=== PATIENT | female | born 1950 | race Caucasian/White ===

== ENCOUNTER → 2019-06-22 | Outpatient (CLI) | payer MEDICARE, OTHER ==
[~2019-06-22] MED LIST: ALLO100T PO; ALLO300T PO; ASPI-667 PO; CITA40TA5 PO; EMPA25TA PO; ESTR0.5T PO; EZET1TAB35 PO; GABA100C7 PO; GABA600T7 PO; LEVO25TA2 PO; METF500T12 PO; OMEP40CA6 PO; PRAV40TA2 PO; ROPI5TAB PO; TRAM200T17 PO
[2019-06-22 15:28] LABS: CALCIUM 9.3 mg/dL (8.4-10.5); CARBON DIOXIDE 30.5 mmol/L (20.0-32)
== END | disposition home or self-care (01) ==
LOC: LAB 14:57
PROVIDERS: ATTEND Internal Medicine
DX: E78.2 Mixed hyperlipidemia (principal)
CPT/HCPCS: 36415; 80053; 80061

== ENCOUNTER 2019-06-23 20:49 | Emergency (ER) | payer MEDICARE, OTHER ==
[2019-06-23] VITALS (9 sets, daily range): BP systolic 97–138; BP diastolic 51–71
[~2019-06-23] VITALS: Ht 160 cm; Wt 104.3 kg
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
[2019-06-23] MEDS ORDERED: TORADOL ONE (21:16)
[2019-06-23] MEDS ORDERED: NS 1000ML 1,000 ML ONE (21:16)
[2019-06-23] MEDS: TORADOL IV STA (21:22)
[2019-06-23] MEDS: NS 1000ML 1,000 ML IV STA (21:22)
--- NOTE | 2019-06-23 21:26 | ER.PDOC ---
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 Injuries/Pain Location: head, neck, back Context: Lost Balance Loss of Consciousness: No Loss of Consciousness Associated Symptoms: headache, neck pain Allergies: Coded Allergies: codeine (Unverified Allergy, Unknown, 05/24/14) oxytetracycline (Unverified Allergy, Unknown, 05/24/14) MEDS Reported Medications Empagliflozin (Jardiance) 25 Mg Tablet, 0.5 TAB PO DAILY24, TABLET 12/13/17 Pravastatin Sodium (PRAVASTATIN SODIUM) 40 Mg Tablet, 1 TAB PO HS, #90 TAB 1 Refill 12/13/17 Estradiol (ESTRADIOL) 0.5 Mg Tablet, 1 TAB PO DAILY, #90 TAB 3 Refills 12/13/17 Citalopram Hydrobromide (CITALOPRAM HBR) 40 Mg Tablet, 1 TAB PO DAILY, #90 TAB 1 Refill 12/13/17 Omeprazole (OMEPRAZOLE) 40 Mg Capsule.dr, 1 CAP PO BID, #30 CAP 3 Refills 12/13/17 Gabapentin (GABAPENTIN) 600 Mg Tablet, 1 TAB PO BID, #90 TAB 12/13/17 Allopurinol (ALLOPURINOL) 300 Mg Tablet, 1 TAB PO DAILY, #30 TAB 5 Refills 12/13/17 Metformin Hcl (METFORMIN HCL ER) 500 Mg Tab.er.24h, 1 TAB PO BID, #180 TAB 3 Refills 05/24/14 Aspirin (ASPIRIN) 81 Mg Tab.chew, 1 TAB PO DAILY, #30 TAB 3 Refills 05/24/14 Levothyroxine Sodium (SYNTHROID) 25 Mcg Tablet, 1 TAB PO DAILY, #30 TAB 5 Refills 05/24/14 Ropinirole Hcl (REQUIP) 5 Mg Tablet, 5 MG PO DAILY, TABLET 05/24/14 Ezetimibe/Simvastatin (VYTORIN 10-40 MG TABLET) 1 Each Tablet, 1 TAB PO DAILY, #30 TAB 5 Refills 05/24/14 Past Medical History Medical History: congestive heart failure, high cholesterol, hypertension, thyroid disease, other Surgical History: back, cholecystectomy, hysterectomy, shoulder, tonsillectomy Social History Smoking: non-smoker Alcohol Use: none Drug Use: none Review of Systems Constitutional: no symptoms reported Ears, Nose, Mouth, Throat: no symptoms reported Respiratory: no symptoms reported Cardiovascular: no symptoms reported Gastrointestinal: no symptoms reported Musculoskeletal: see HPI All Other Systems: Reviewed and Negative Physical Exam General Appearance: No Apparent Distress, WD/WN Head: No Evidence of Injury Eyes: bilateral eye normal inspection Neck: Tenderness Cardiovascular/Respiratory: Regular Rate, Rhythm, No M/R/G, Normal Peripheral Pulses, No JVD, Normal Breath Sounds, No Respiratory Distress Gastrointestinal: Normal Bowel Sounds, No Organomegaly, No Pulsatile Mass, Non Tender, Soft Back: Vertebral Tenderness Extremities: No Evidence of Injury, Normal Range of Motion, Non-Tender, No Pedal Edema 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, No Motor/Sensory Deficits, Alert, Normal Mood/Affect, Oriented x 3 Skin: Other (multiple skin tears LUE) July Coma Score Best Eye Response: (4) Open Spontaneously Best Verbal Response: (5) Oriented Best Motor Response: (6) Obeys Commands Results/Orders Results/Orders Orders - JEROME MEYER MD 0.9 % Sodium Chloride (Ns 1000ml) (06/23/19 21:16) Ketorolac Tromethamine (Toradol) (06/23/19 21:16) 0.9 % Sodium Chloride (Ns 1000ml) (06/23/19 21:19) Ct Cervical Spine (06/23/19 21:19) Ct Head Wo Contrast (06/23/19 21:19) Ct Thoracic Wo Contrast (06/23/19 21:19) Ct Lumbar Wo Contrast (06/23/19 21:19) Cbc With Auto Diff (06/23/19 21:19) Comprehensive Metabolic Panel (06/23/19 21:19) Creatine Kinase (06/23/19 21:19) Troponin I (06/23/19 21:19) Ekg-Routine (06/23/19 21:19) Ketorolac Tromethamine (Toradol) (06/23/19 21:19) Vital Signs Date Time Temp Pulse Resp B/P (MAP) Pulse Ox O2 Delivery O2 Flow Rate FiO2 06/23/19 22:00 18 06/23/19 22:00 87 18 138/58 (84) 96 Nasal Canula 2.00 06/23/19 21:30 84 18 118/69 (85) 97 Nasal Canula 2.00 06/23/19 21:30 18 06/23/19 21:15 82 18 97/51 (66) 97 Nasal Canula 2.00 06/23/19 21:15 18 06/23/19 21:05 88 18 105/57 (73) 97 Nasal Canula 2.00 06/23/19 21:00 18 06/23/19 20:50 18 06/23/19 20:50 97.4 89 18 06/23/19 20:50 97.4 89 18 107/59 (75) 96 Nasal Canula 2.00 06/23/19 20:50 97.4 89 18 96 Nasal Canula Administered Medications Medications (Trade) Dose Ordered Sig/Kaitlynn Route PRN Reason Start Time Stop Time Status Last Admin Dose Admin Ketorolac Tromethamine (Toradol) 30 mg STAT STAT IV 06/23/19 21:19 06/23/19 21:20 UNV 06/23/19 21:23 30 MG Sodium Chloride 1,000 ml @ 1,200 mls/hr Q50M STAT IV 06/23/19 21:19 06/23/19 22:08 UNV 06/23/19 21:23 1,200 MLS/HR Laboratory Tests Test 06/23/19 21:34 White Blood Count 8.2 10^3/uL (4.5-11.0) Red Blood Count 3.30 10^6/uL (4.00-5.20) L Hemoglobin 9.7 g/dL (12.0-15.0) L Hematocrit 30.8 % (36.0-46.0) L Mean Corpuscular Volume 93.3 fL (78-100) Mean Corpuscular Hemoglobin 29.4 pg (26-34) Mean Corpuscular Hemoglobin Concent 31.5 g/dL (33-37) L Red Cell Distribution Width 17.4 % (11.5-14.5) H Platelet Count 354 10^3/uL (150-400) Mean Platelet Volume 8.5 fL (7.8-11.0) Neutrophils (%) (Auto) 58.8 % (41.0-85.0) Lymphocytes (%) (Auto) 30.2 % (24.0-44.0) Monocytes (%) (Auto) 8.3 % (5.0-12.0) Neutrophils # (Auto) 4.8 10^3/uL (1.8-7.7) Lymphocytes # (Auto) 2.5 10^3/uL (1.0-4.8) Monocytes # (Auto) 0.7 10^3/uL (0.3-0.8) Absolute Immature Granulocyte (auto 0.03 10^3 u/L (0-2) Immature Granulocytes % 0.40 % (0.00-0.50) Eosinophils % 2.2 % (0.0-5.0) Basophils % 0.1 % (0.0-0.2) Basophils # 0.0 10^3/uL (0.0-0.1) Eosinophil Count 0.2 10^3/uL (0.0-0.2) Sodium Level 139 mmol/L (132-145) Potassium Level 5.0 mmol/L (3.6-5.2) Chloride Level 103.0 mmol/L (96-109) Carbon Dioxide Level 27.2 mmol/L (20.0-32) Anion Gap 13.8 Blood Urea Nitrogen 27 mg/dL (7-18) H Creatinine 2.04 mg/dL (0.59-1.40) *H Estimated GFR () 29.0 (>/=60) BUN/Creatinine Ratio 13.0 Glucose Level 169 mg/dL (70-110) H Calcium Level 8.4 mg/dL (8.4-10.5) Total Bilirubin 0.2 mg/dL (0.2-1.0) Aspartate Amino Transferase (AST) 18 U/L (0-35) Alanine Aminotransferase (ALT) 17 U/L (12-78) Alkaline Phosphatase 105 U/L (50-136) Total Creatine Kinase 33 U/L (26-192) Troponin I < 0.02 ng/mL (0.00-0.05) Total Protein 6.3 g/dL (6.4-8.2) L Albumin 3.0 g/dL (3.4-5.0) L Globulin 3.3 Progress Progress I wanted to admit patient for further hydration but patient refused that she will drink water at home. She received a Litre of NS and I told her to follow up with her PCP in 2 days for repeat creatinine. She voiced understanding. EKG/XRAY/CT/US CT Comments: See results Departure Time of Disposition: 22:59 Disposition: 01 HOME, SELF-CARE Impression: Primary Impression: Multiple contusions Additional Impressions: Laceration VINCENT (acute kidney injury) Condition: Stable Referrals: LIZ WALLS DO (PCP) PRIMARY CARE PROVIDER Additional Instructions: Apply Neosporin daily to wounds Continue pain medication at home Push fluids F/U with your PCP in 2-3 days Duration or Time Spent with Pa: 60 mins Problem Qualifiers JEROME MEYER MD Jun 23, 2019 21:26
--- NOTE | 2019-06-23 21:35 | PCM.EKG ---
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
[2019-06-23 21:41] LABS: BASOPHIL % 0.1 % (0.0-0.2); EOSINOPHIL # 0.2 10^3/uL (0.0-0.2); EOSINOPHIL % 2.2 % (0.0-5.0); HEMOGLOBIN 9.7 g/dL (12.0-15.0); LYMPHOCYTES # 2.5 10^3/uL (1.0-4.8); LYMPHOCYTES % 30.2 % (24.0-44.0); MEAN CELL HGB 29.4 pg (26-34); MEAN CELL HGB CONCENTRATION 31.5 g/dL (33-37); MEAN CORP VOLUME 93.3 fL (78-100); MEAN PLATELET VOLUME 8.5 fL (7.8-11.0); MONOCYTES # 0.7 10^3/uL (0.3-0.8); MONOCYTES % 8.3 % (5.0-12.0); NEUTROPHIL # 4.8 10^3/uL (1.8-7.7); NEUTROPHILS % 58.8 % (41.0-85.0); RED CELL DISTRIBUTION WIDTH 17.4 % (11.5-14.5); WHITE BLOOD CELL 8.2 10^3/uL (4.5-11.0)
[2019-06-23 22:01] LABS: ALANINE AMINOTRANSFERASE(ML) 17 U/L (12-78); ALKALINE PHOSPHATASE 105 U/L (50-136); ASPARTATE AMINO TRANSFERASE 18 U/L (0-35); CALCIUM 8.4 mg/dL (8.4-10.5); CARBON DIOXIDE 27.2 mmol/L (20.0-32); GLUCOSE 169 mg/dL (70-110)
--- NOTE | 2019-06-23 22:26 | DIREP ---
PROCEDURE:CT HEAD OR BRAIN W/O CONTRAST COMPARISON:None. INDICATIONS:Pain/injury TECHNIQUE:CT images were created without intravenous contrast. FINDINGS: VENTRICLES:The ventricles are normal in size and configuration for patient's age. CEREBRUM:Mild decreased attenuation is seen in the periventricular white matter bilaterally. CEREBELLUM:Negative. BRAINSTEM:Negative. BASAL CISTERNS:Negative. HEMORRHAGE:No MASS LESION:No ACUTE INFARCT:No SKULL:Normal. SINUSES:Normal. OTHER:None CONCLUSION:There are findings of decreased attenuation in the periventricular white matter bilaterally consistent with chronic small vessel ischemic changes. No fracture or hemorrhage is seen. Dictated by: Kyle Wilkins M.D. on 06/23/2019 at 10:21 PM
--- NOTE | 2019-06-23 22:29 | DIREP ---
PROCEDURE:CT CERVICAL SPINE WITHOUT CONTRAST TECHNIQUE:Axial cuts were obtained through the cervical spine. The images were viewed at bone settings. Sagittal and coronal reconstructions are provided. COMPARISON:None. INDICATIONS:Pain/injury FINDINGS: ALIGNMENT:Normal. VERTEBRAE:No fracture is seen. Small anterior and posterior endplate osteophytes are seen at C5-6 and C6-7. PARASPINAL AREA:Normal. OTHER:No additional findings. CONCLUSION:No fracture or subluxation is seen. Mild spondylosis is seen at C5-6 and C6-7. Dictated by: Kyle Wilkins M.D. on 06/23/2019 at 10:25 PM
--- NOTE | 2019-06-23 22:39 | DIREP ---
PROCEDURE:CT SPINE THORACIC W/O COMPARISON:None. INDICATIONS:Pain/injury TECHNIQUE:Multi-planar CT images were obtained and created without intravenous contrast. FINDINGS: VERTEBRAE: No fracture is demonstrated. Mild anterior spurring is seen in the mid to lower thoracic spine and generalized osteopenia. PARASPINAL AREA:Normal. DISC LEVELS:Normal. ALIGNMENT:Normal. OTHER:Negative. CONCLUSION:There are mild degenerative changes in the mid and lower thoracic spine. No compression fracture is demonstrated. Dictated by: Kyle Wilkins M.D. on 06/23/2019 at 10:36 PM
--- NOTE | 2019-06-23 22:42 | DIREP ---
PROCEDURE: CT LUMBAR SPINE WITHOUT CONTRAST TECHNIQUE:Axial cuts were obtained through the lumbar spine. The images were viewed at bone settings. Sagittal and coronal reconstructions are provided. COMPARISON:None. INDICATIONS:Pain/injury FINDINGS: ALIGNMENT:Normal. VERTEBRAE:No fracture is demonstrated. PARASPINAL AREA:Normal. OTHER:An IVC filter is incidentally noted. LUMBAR DISC LEVELS T12-L1:A vacuum disc is seen. No disc bulge or disc protrusion is seen. L1-L2:Normal. L2-L3:Normal. L3-L4:Normal. L4-L5:Normal. L5-S1:Severe disc space narrowing is seen with a vacuum disc. CONCLUSION:No fracture is demonstrated. Degenerative disc disease is seen at T12-L1 and L5-S1. Dictated by: Kyle Wilkins M.D. on 06/23/2019 at 10:39 PM
--- NOTE | 2019-06-23 22:48 | NUR ---
C-COLLAR C-COLLAR CLEARED BY MD BETSY.
--- NOTE | 2019-06-23 23:05 | NUR ---
SKIN TEARS SKIN TEARS CLEANED AND STERI-STRIPS APPLIED PER REQUEST OF MD BETSY.
[2019-06-23] MEDS ORDERED: ADACEL VIAL IM ONE (23:09)
[2019-06-23] MEDS: ADACEL VIAL IM ONE (23:18)
--- NOTE | 2019-06-23 23:30 | NUR ---
IV IV DISCONTINUED WITH TIP INTACT. PRESSURE DRESSING APPLIED.
== END 2019-06-23 23:36 | disposition home or self-care (01) ==
LOC: EDBD 20:49 → ER 20:49
DX: S41.111A Laceration without foreign body of right upper arm, initial encounter (principal); S10.93XA Contusion of unspecified part of neck, initial encounter; S30.0XXA Contusion of lower back and pelvis, initial encounter; N17.9 Acute kidney failure, unspecified; R51 Headache; I11.0 Hypertensive heart disease with heart failure; I50.9 Heart failure, unspecified; E78.00 Pure hypercholesterolemia, unspecified; E07.9 Disorder of thyroid, unspecified; Z88.5 Allergy status to narcotic agent; Z88.8 Allergy status to other drugs, medicaments and biological substances; Z98.890 Other specified postprocedural states; Z90.49 Acquired absence of other specified parts of digestive tract; Z90.89 Acquired absence of other organs; Z79.82 Long term (current) use of aspirin; Z79.899 Other long term (current) drug therapy; Z90.710 Acquired absence of both cervix and uterus; W18.30XA Fall on same level, unspecified, initial encounter; Y93.89 Activity, other specified; Y92.511 Restaurant or cafe as the place of occurrence of the external cause; Y99.0 Civilian activity done for income or pay
CPT/HCPCS: 36415; 70450; 72125; 72128; 72131; 80053; 82550; 84484; 85025; 90471; 90715; 93005; 96374; 99285; J1885; J7030

== ENCOUNTER 2019-07-13 14:19 | Inpatient (IN) | payer MEDICARE, OTHER ==
[~2019-07-13] VITALS: Ht 157.5 cm; Wt 113.4 kg
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
[2019-07-13 14:19] VITALS: BP 131/78
[~2019-07-13 14:19] MED LIST changes: +OMEP40CA41 PO; -OMEP40CA6 PO
--- NOTE | 2019-07-13 14:41 | DIREP ---
PROCEDURE:CHEST 1 VIEW COMPARISON:[facility], CR, XRAY CHEST 2 VWS, 05/26/2018, 04:49 PM. INDICATIONS:dyspnea FINDINGS: LUNGS/PLEURA:Shallow expansion of the lungs. The lungs are clear. No pneumonia, heart failure or effusions are seen. EKG leads identified. VASCULATURE:Normal. Unremarkable pulmonary vasculature. CARDIAC:Normal. No cardiac silhouette abnormality or cardiomegaly. MEDIASTINUM:Normal. No visible mass or adenopathy. BONES:Normal. No fracture or visible bony lesion. OTHER:Negative. CONCLUSION:Shallow expansion of the lungs. No active disease. No pneumonia is seen. Dictated by: Marcial Trujillo MD on 07/13/2019 at 02:39 PM
[2019-07-13 15:14] LABS: BASOPHIL % 0.1 % (0.0-0.2); EOSINOPHIL # 0.1 10^3/uL (0.0-0.2); EOSINOPHIL % 0.6 % (0.0-5.0); HEMOGLOBIN 9.6 g/dL (12.0-15.0); LYMPHOCYTES % 16.6 % (24.0-44.0); MEAN CELL HGB 28.9 pg (26-34); MEAN CELL HGB CONCENTRATION 31.7 g/dL (33-37); MEAN CORP VOLUME 91.3 fL (78-100); MEAN PLATELET VOLUME 8.3 fL (7.8-11.0); MONOCYTES # 0.9 10^3/uL (0.3-0.8); MONOCYTES % 7.7 % (5.0-12.0); NEUTROPHIL # 8.8 10^3/uL (1.8-7.7); NEUTROPHILS % 74.8 % (41.0-85.0); RED CELL DISTRIBUTION WIDTH 16.4 % (11.5-14.5); WHITE BLOOD CELL 11.8 10^3/uL (4.5-11.0)
[2019-07-13 15:35] LABS: ALANINE AMINOTRANSFERASE(ML) 16 U/L (12-78); ALKALINE PHOSPHATASE 111 U/L (50-136); ASPARTATE AMINO TRANSFERASE 20 U/L (0-35); CALCIUM 9.1 mg/dL (8.4-10.5); CARBON DIOXIDE 31.7 mmol/L (20.0-32); GLUCOSE 136 mg/dL (70-110)
[2019-07-13 15:44] LABS: ABG PCO2 41.6 mmHg (35.0-45.0); BE(B) 3.9 mmol/L (-2.0-2.0); HCO3act 28.3 mmol/L (22.0-26.0)
--- NOTE | 2019-07-13 15:58 | PCM.EKG ---
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
[2019-07-13 16:19] VITALS: BP 138/78
[2019-07-13 17:32] VITALS: BP 145/68
[2019-07-13] MEDS ORDERED: ZOFRAN IV PRN (18:30)
[2019-07-13] MEDS ORDERED: LEVO100T PO (18:32)
[2019-07-13] MEDS ORDERED: MAGN400C PO (18:32)
[2019-07-13] MEDS ORDERED: ATOR20TA PO (18:32)
[2019-07-13] MEDS ORDERED: ALLO100T PO (18:32)
[2019-07-13] MEDS ORDERED: GABA300C10 PO (18:32)
--- NOTE | 2019-07-13 18:45 | NUR ---
RECEIVED PT TO UNIT VIA W/C ACCOMPANIED BY FAMILY X4 ER STAFF X1. PT TRANSFERRED FROOM W/C TO BED WITH NOTED EAKNESS AND UNSTEADY GAIT. ORIENTED TO ROOM CALL LIGHT IN REACH
[2019-07-13 19:00] VITALS: BP 159/95
[2019-07-13] MEDS ORDERED: DEXTROSE 50%-WATER SYRINGE IV PRN (19:30)
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
--- NOTE | 2019-07-13 20:40 | NUR ---
PT UP TO BR WITHOUT CALLING FOR ASSIST, STATES THAT SHE ALMOST FELL IN BR. PT ASSISTED BACK TO BED FROM CHAIR N ROOM, INSTRUCTED TO USE CALL LIGHT BEFORE GETTING UP. BED ALARM ACTIVATED
[2019-07-13] MEDS: SOLU-MEDROL IV SCH (20:55)
[2019-07-13] MEDS: GLUCOPHAGE XR PO SCH (20:55)
[2019-07-13] MEDS: NEURONTIN PO SCH (20:55)
[2019-07-13] MEDS: HUMULIN R SQ SCH (20:56)
[2019-07-14] MEDS ORDERED: DUONEB 0.5 MG-3 MG/3 ML SOLN IH SCH
[2019-07-14] MEDS ORDERED: DUONEB 0.5 MG-3 MG/3 ML SOLN IH ONE ×4 (01:51→19:52)
[2019-07-14] MEDS: DUONEB 0.5 MG-3 MG/3 ML SOLN IH SCH ×5 (02:15→20:49)
[2019-07-14 03:08] LABS: BASOPHIL % 0.1 % (0.0-0.2); HEMOGLOBIN 9.3 g/dL (12.0-15.0); LYMPHOCYTES # 0.7 10^3/uL (1.0-4.8); LYMPHOCYTES % 8.7 % (24.0-44.0); MEAN CELL HGB 28.7 pg (26-34); MEAN CELL HGB CONCENTRATION 31.3 g/dL (33-37); MEAN CORP VOLUME 91.7 fL (78-100); MEAN PLATELET VOLUME 8.6 fL (7.8-11.0); MONOCYTES # 0.1 10^3/uL (0.3-0.8); MONOCYTES % 1.1 % (5.0-12.0); NEUTROPHIL # 6.8 10^3/uL (1.8-7.7); NEUTROPHILS % 89.8 % (41.0-85.0); RED CELL DISTRIBUTION WIDTH 16.4 % (11.5-14.5); WHITE BLOOD CELL 7.6 10^3/uL (4.5-11.0)
[2019-07-14 03:23] LABS: CALCIUM 9.3 mg/dL (8.4-10.5)
[2019-07-14 04:17] VITALS: BP 116/62
[2019-07-14] MEDS: SOLU-MEDROL IV SCH ×2 (04:48→20:26)
[2019-07-14 07:57] VITALS: BP 141/88
[2019-07-14] MEDS: HUMULIN R SQ SCH ×4 (08:20→20:27)
[2019-07-14] MEDS: SYNTHROID PO SCH (08:30)
[2019-07-14] MEDS: NEURONTIN PO SCH ×2 (08:30→20:26)
[2019-07-14] MEDS: ASPIRIN PO SCH (08:30)
[2019-07-14] MEDS: CeleXA PO SCH (08:30)
[2019-07-14] MEDS: MAG-OX PO SCH (08:30)
[2019-07-14] MEDS: ZYLOPRIM PO SCH (08:30)
[2019-07-14] MEDS: PROTONIX PO SCH (08:30)
[2019-07-14] MEDS: GLUCOPHAGE XR PO SCH ×2 (08:30→20:27)
[2019-07-14] MEDS: LIPITOR PO SCH (08:30)
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
[2019-07-14 12:03] VITALS: BP 135/79
[2019-07-14 17:11] VITALS: BP 144/81
[2019-07-14 19:30] VITALS: BP 128/75
[2019-07-14] MEDS ORDERED: WATER 20 ML ONE (20:23)
[2019-07-15] VITALS: BP 149/79
[2019-07-15] MEDS ORDERED: TYLENOL PO STA ×3 (02:54→20:22)
[2019-07-15 05:45] LABS: HEMOGLOBIN 9.1 g/dL (12.0-15.0); LYMPHOCYTES # 0.5 10^3/uL (1.0-4.8); LYMPHOCYTES % 4.6 % (24.0-44.0); MEAN CELL HGB 28.9 pg (26-34); MEAN CELL HGB CONCENTRATION 31.7 g/dL (33-37); MEAN CORP VOLUME 91.1 fL (78-100); MEAN PLATELET VOLUME 8.9 fL (7.8-11.0); MONOCYTES # 0.3 10^3/uL (0.3-0.8); MONOCYTES % 2.6 % (5.0-12.0); NEUTROPHIL # 9.3 10^3/uL (1.8-7.7); NEUTROPHILS % 92.5 % (41.0-85.0); RED CELL DISTRIBUTION WIDTH 16.4 % (11.5-14.5); WHITE BLOOD CELL 10.1 10^3/uL (4.5-11.0)
[2019-07-15 06:09] LABS: CALCIUM 9.6 mg/dL (8.4-10.5)
[2019-07-15 07:00] VITALS: BP 155/101
[2019-07-15] MEDS: HUMULIN R SQ SCH ×4 (07:35→20:49)
--- NOTE | 2019-07-15 07:53 | NUR ---
STATUS Pt BP 155/101, P 102, Pt C/O OF HEADACHE AND FEELING HOT AND FLUSH IN HER CHEEKS, NOTIFIED DR SWANN VIA TELEPHONE RECEIVED STAT ORDER FOR TYLENOL 1000MG PO, WILL ADMINISTER MED TO Pt AND WILL CONTINUE TO MONITOR THE Pt.
[2019-07-15] MEDS ORDERED: WATER 20 ML ONE (08:06)
[2019-07-15] MEDS: SYNTHROID PO SCH (08:09)
[2019-07-15] MEDS: LIPITOR PO SCH (08:09)
[2019-07-15] MEDS: ZYLOPRIM PO SCH (08:09)
[2019-07-15] MEDS: MAG-OX PO SCH (08:09)
[2019-07-15] MEDS: CeleXA PO SCH (08:09)
[2019-07-15] MEDS: GLUCOPHAGE XR PO SCH (08:09)
[2019-07-15] MEDS: NEURONTIN PO SCH ×2 (08:09→20:48)
[2019-07-15] MEDS: PROTONIX PO SCH (08:09)
[2019-07-15] MEDS: ASPIRIN PO SCH (08:09)
[2019-07-15] MEDS: SOLU-MEDROL IV SCH (08:10)
[2019-07-15 08:11] LABS: ANISOCYTOSIS 1+ (NEGATIVE); LYMPHOCYTE 3 % (25-36); SEGMENTED NEUTROPHILS 97 % (31-76)
[2019-07-15] MEDS: DUONEB 0.5 MG-3 MG/3 ML SOLN IH SCH ×3 (08:19→20:56)
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
[2019-07-15] MEDS: LACTATED RINGERS 1,000 ML IV SCH ×2 (11:00→22:09)
[2019-07-15] MEDS: LOPRESSOR PO SCH ×2 (11:05→20:48)
--- NOTE | 2019-07-15 11:24 | PCM.EKG ---
[facility] Test Date: 2019-07-15 Test Time: 11:21:24 Pat Name: WALLY ASHLEY Department: Room: 312 A Gender: F Bioinformatician: MIGUEL : [id number] Requested By: HALIMA TORRES Order Number: [id number] Reading MD: Halima Torres Measurements Intervals Sacul Rate: 111 P: 82 DE: 170 QRS: 70 QRSD: 76 T: 63 QT: 338 QTc: 459 Interpretive Statements Sinus tachycardia Otherwise normal ECG Compared to ECG 06/23/2019 21:33:05 Sinus rhythm no longer present Electronically Signed On 07-18-2019 14:58:00 CDT by Halima Torres Please click the below link to view image of tracing.
[2019-07-15 11:30] VITALS: BP 134/80
[2019-07-15 16:15] VITALS: BP 148/87
[2019-07-15 20:30] VITALS: BP 166/85
[2019-07-16] MEDS: DUONEB 0.5 MG-3 MG/3 ML SOLN IH SCH ×2 (02:34→08:22)
[2019-07-16 05:00] VITALS: BP 167/81
[2019-07-16 06:05] LABS: HEMOGLOBIN 8.7 g/dL (12.0-15.0); LYMPHOCYTES # 1.6 10^3/uL (1.0-4.8); MEAN CELL HGB 28.9 pg (26-34); MEAN CELL HGB CONCENTRATION 31.2 g/dL (33-37); MEAN CORP VOLUME 92.7 fL (78-100); MEAN PLATELET VOLUME 8.8 fL (7.8-11.0); MONOCYTES # 0.6 10^3/uL (0.3-0.8); NEUTROPHIL # 6.5 10^3/uL (1.8-7.7); NEUTROPHILS % 74.9 % (41.0-85.0); RED CELL DISTRIBUTION WIDTH 16.6 % (11.5-14.5); WHITE BLOOD CELL 8.6 10^3/uL (4.5-11.0)
[2019-07-16] MEDS: SYNTHROID PO SCH ×2 (06:15→09:00)
[2019-07-16 06:37] LABS: CALCIUM 9.3 mg/dL (8.4-10.5); CARBON DIOXIDE 29.1 mmol/L (20.0-32)
[2019-07-16] MEDS: HUMULIN R SQ SCH ×2 (07:14→11:30)
[2019-07-16 08:47] VITALS: BP 153/91
[2019-07-16] MEDS: LOPRESSOR PO SCH (09:43)
[2019-07-16] MEDS: NEURONTIN PO SCH (09:43)
[2019-07-16] MEDS: ZYLOPRIM PO SCH (09:43)
[2019-07-16] MEDS: ASPIRIN PO SCH (09:43)
[2019-07-16] MEDS: MAG-OX PO SCH (09:44)
[2019-07-16] MEDS: CeleXA PO SCH (09:44)
[2019-07-16] MEDS: LIPITOR PO SCH (09:44)
[2019-07-16] MEDS: PROTONIX PO SCH (09:44)
[2019-07-16] MEDS ORDERED: METO50TA6 PO (10:39)
[2019-07-16] MEDS ORDERED: OMEP40CA41 PO ×2 (10:39→10:48)
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
--- NOTE | 2019-07-16 13:25 | NUR ---
DISCHARGED Pt DISCHARGED TO [facility] FROM THE HOSPITAL, IV D/C DISCHARGE PACKET HANDED OVER TO LONG TERM CAN LABELER, ASSISTED IN WC TO MAIN EXIT.PICS OF SKIN CONDITIONS TAKEN ITS IN Pt CHART.
[2019-07-16 13:30] VITALS: BP 153/91
== END 2019-07-16 13:33 | DRG 191 ==
LOC: ER 14:19 → EDBD 14:19 → MS 17:21
PROVIDERS: ADMIT Family Medicine; ATTEND Family Medicine
DX: J44.1 Chronic obstructive pulmonary disease with (acute) exacerbation (principal); J68.0 Bronchitis and pneumonitis due to chemicals, gases, fumes and vapors; D64.9 Anemia, unspecified; E03.9 Hypothyroidism, unspecified; E11.40 Type 2 diabetes mellitus with diabetic neuropathy, unspecified; F41.9 Anxiety disorder, unspecified; G47.33 Obstructive sleep apnea (adult) (pediatric); G72.89 Other specified myopathies; J70.5 Respiratory conditions due to smoke inhalation; R09.02 Hypoxemia; R29.6 Repeated falls; T59.811A Toxic effect of smoke, accidental (unintentional), initial encounter; E79.0 Hyperuricemia without signs of inflammatory arthritis and tophaceous disease; T59.814A Toxic effect of smoke, undetermined, initial encounter; T38.0X5A Adverse effect of glucocorticoids and synthetic analogues, initial encounter; Z79.82 Long term (current) use of aspirin; Z90.710 Acquired absence of both cervix and uterus; Z91.19 Patient's noncompliance with other medical treatment and regimen; Y92.89 Other specified places as the place of occurrence of the external cause; Z90.49 Acquired absence of other specified parts of digestive tract; Z88.5 Allergy status to narcotic agent; Z88.8 Allergy status to other drugs, medicaments and biological substances; Z79.899 Other long term (current) drug therapy; Z87.891 Personal history of nicotine dependence; Z82.5 Family history of asthma and other chronic lower respiratory diseases; Z82.49 Family history of ischemic heart disease and other diseases of the circulatory system; Z83.3 Family history of diabetes mellitus; Z82.0 Family history of epilepsy and other diseases of the nervous system; Z82.3 Family history of stroke
CPT/HCPCS: 36415; 36600; 71045; 80053; 82550; 82803; 82948; 83880; 84443; 84484; 85025; 93005; 94640; 97163; 99285; G0378; J2920; J3490; J7120; J7620; 97110-GP; 97116-GP; A4216

== ENCOUNTER 2019-08-05 11:25 | Emergency (ER) | payer MEDICARE, OTHER ==
[~2019-08-05] VITALS: Ht 157.5 cm; Wt 113.4 kg
[~2019-08-05 11:25] MED LIST changes: +ATOR20TA PO; +GABA300C10 PO; +LEVO100T PO; +MAGN400C PO; +METO50TA6 PO
[2019-08-05 11:34] VITALS: BP 196/111
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
[2019-08-05] MEDS ORDERED: MORPHINE SULFATE IM STA (11:37)
[2019-08-05] MEDS ORDERED: TORADOL IM STA (11:37)
--- NOTE | 2019-08-05 11:40 | ER.PDOC ---
General Chief Complaint: Chest Pain-Cardiac Nature Stated Complaint: CHEST PAIN Time seen by MD: 11:33 Source: patient Exam Limitations: no limitations History of Present Illness Timing/Duration: 4-6 hours Where: home Location of pain/injury: upper back Quality/Severity: moderate Allergies: Coded Allergies: codeine (Unverified Allergy, Unknown, 05/24/14) oxytetracycline (Unverified Allergy, Unknown, 05/24/14) Home Meds Active Scripts Omeprazole (OMEPRAZOLE) 40 Mg Capsule.dr, 1 CAP PO BID for 30 Days, #30 CAP Prov:HALIMA TORRES MD 07/16/19 Metoprolol Tartrate 50MG (LOPRESSER 50MG) 50 Mg Tablet, 50 MG PO BID for 30 Days, #60 TAB 0 Refills Prov:HALIMA TORRES MD 07/16/19 Reported Medications Magnesium Oxide (MAGNESIUM) 400 Mg Capsule, 1 CAP PO DAILY, #30 CAP 3 Refills 07/13/19 Levothyroxine Sodium (SYNTHROID) 100 Mcg Tablet, 1 TAB PO DAILY, #30 TAB 5 Refills 07/13/19 Atorvastatin 20MG (LIPITOR 20MG) 20 Mg Tablet, 1 TAB PO DAILY, #90 TAB 1 Refill 07/13/19 Gabapentin (GABAPENTIN) 300 Mg Capsule, 1 CAP PO BID, #90 CAP 5 Refills 07/13/19 Allopurinol (ALLOPURINOL) 100 Mg Tablet, 1 TAB PO DAILY, #30 TAB 5 Refills 07/13/19 Estradiol (ESTRADIOL) 0.5 Mg Tablet, 1 TAB PO DAILY, #90 TAB 3 Refills 12/13/17 Citalopram Hydrobromide (CITALOPRAM HBR) 40 Mg Tablet, 1 TAB PO DAILY, #90 TAB 1 Refill 12/13/17 Metformin Hcl (METFORMIN HCL ER) 500 Mg Tab.er.24h, 1 TAB PO BID, #180 TAB 3 Refills 05/24/14 Ezetimibe/Simvastatin (VYTORIN 10-40 MG TABLET) 1 Each Tablet, 1 TAB PO DAILY, #30 TAB 5 Refills 05/24/14 Past Medical History Medical History: cardiac problems, hypertension, thyroid disease Surgical History: appendectomy, cholecystectomy, hysterectomy, shoulder Social History Smoking: non-smoker Alcohol Use: none Drug Use: none Reviewed Nursing Reviewed: Vital Signs, Abn. Noted Review of Systems All Other Systems: Reviewed and Negative Physical Exam General Appearance: No Apparent Distress, WD/WN Head: No Evidence of Injury Eyes: bilateral eye normal inspection, bilateral eye PERRL, bilateral eye EOMI Ears, Nose, Throat: Hearing Grossly Normal, No Evidence of ENT Injury, No Dental Injury Respiratory: tenderness, splinting Cardiovascular/Chest: Normal Peripheral Pulses, Regular Rate, Rhythm, No Edema, No Gallop, No JVD, No Murmur Gastrointestinal: Normal Bowel Sounds, No Organomegaly, No Pulsatile Mass, Non Tender, Soft Back: Normal Inspection, No CVA Tenderness, No Vertebral Tenderness Extremities: No Evidence of Injury, Normal Range of Motion, Non-Tender, No Pedal Edema Neurologic/Psychiatric: dedenter II-XII NML as Tested, No Motor/Sensory Deficits, Alert, Normal Mood/Affect, Oriented x 3 July Coma Score [place] Total: 15 Results/Orders Results/Orders Orders - DAVID CRAIN MD Cbc With Auto Diff (08/05/19 11:29) Comprehensive Metabolic Panel (08/05/19 11:29) Creatine Kinase (08/05/19 11:29) Creatine Kinase Mb (08/05/19 11:29) Troponin I (08/05/19 11:29) Probnp B-Type Help Desk Consultant (08/05/19 11:29) PT (08/05/19 11:29) Partial Thromboplastin Time. (08/05/19 11:29) Helicobacter Pylori (08/05/19 11:29) D-Dimer (08/05/19 11:29) Xr Chest 1v (08/05/19 11:29) Ekg-Routine (08/05/19 11:29) Ketorolac Tromethamine (Toradol) (08/05/19 11:37) Morphine Sulfate (Morphine Sulfate) (08/05/19 11:37) Xr Ribs Lt W/Cxr (08/05/19 11:39) Ondansetron (Zofran Odt) (08/05/19 11:41) Ketorolac Tromethamine (Toradol) (08/05/19 11:42) Prednisone (Prednisone) (08/05/19 12:10) Cta Chest (08/05/19 12:11) Prednisone (Prednisone) (08/05/19 12:18) Vital Signs Date Time Temp Pulse Resp B/P (MAP) Pulse Ox O2 Delivery O2 Flow Rate FiO2 08/05/19 13:27 97.8 84 20 169/99 (122) 92 Nasal Canula 2.00 08/05/19 11:34 97.8 101 20 196/111 (139) 92 Room Air 08/05/19 11:34 97.8 101 20 08/05/19 11:31 97.8 101 20 92 Room Air Administered Medications Medications (Trade) Dose Ordered Sig/Kaitlynn Route PRN Reason Start Time Stop Time Status Last Admin Dose Admin Ketorolac Tromethamine (Toradol) 30 mg Q6H STAT IM 08/05/19 11:37 08/05/19 11:38 UNV 08/05/19 11:47 30 MG Morphine Sulfate (Morphine Sulfate) 4 mg STAT STAT IM 08/05/19 11:37 08/05/19 11:38 UNV 08/05/19 11:48 4 MG Prednisone (Prednisone) 40 mg STAT STAT PO 08/05/19 12:10 08/05/19 12:12 DC 08/05/19 12:21 40 MG Laboratory Tests Test 08/05/19 11:36 White Blood Count 6.8 10^3/uL (4.5-11.0) Red Blood Count 3.12 10^6/uL (4.00-5.20) L Hemoglobin 8.9 g/dL (12.0-15.0) L Hematocrit 29.3 % (36.0-46.0) L Mean Corpuscular Volume 93.9 fL (78-100) Mean Corpuscular Hemoglobin 28.5 pg (26-34) Mean Corpuscular Hemoglobin Concent 30.4 g/dL (33-37) L Red Cell Distribution Width 16.0 % (11.5-14.5) H Platelet Count 344 10^3/uL (150-400) Mean Platelet Volume 8.5 fL (7.8-11.0) Neutrophils (%) (Auto) 70.7 % (41.0-85.0) Lymphocytes (%) (Auto) 19.2 % (24.0-44.0) L Monocytes (%) (Auto) 6.4 % (5.0-12.0) Neutrophils # (Auto) 4.8 10^3/uL (1.8-7.7) Lymphocytes # (Auto) 1.3 10^3/uL (1.0-4.8) Monocytes # (Auto) 0.4 10^3/uL (0.3-0.8) Absolute Immature Granulocyte (auto 0.02 10^3 u/L (0-2) Immature Granulocytes % 0.30 % (0.00-0.50) Eosinophils % 3.1 % (0.0-5.0) Basophils % 0.3 % (0.0-0.2) H Basophils # 0.0 10^3/uL (0.0-0.1) Eosinophil Count 0.2 10^3/uL (0.0-0.2) Prothrombin Time 9.2 SEC (9.4-11.5) L Prothrombin Time INR (Non-Therap) 0.9 Activated Partial Thromboplast Time 23.0 SEC (24.67-30.72) D-Dimer 1.37 mg/L (0.19-0.49) *H Sodium Level 141 mmol/L (132-145) Potassium Level 4.3 mmol/L (3.6-5.2) Chloride Level 103.0 mmol/L (96-109) Carbon Dioxide Level 27.8 mmol/L (20.0-32) Anion Gap 14.5 Blood Urea Nitrogen 16 mg/dL (7-18) Creatinine 0.94 mg/dL (0.59-1.40) Estimated GFR () 71.0 (>/=60) BUN/Creatinine Ratio 17.0 Glucose Level 128 mg/dL (70-110) H Calcium Level 9.2 mg/dL (8.4-10.5) Total Bilirubin 0.5 mg/dL (0.2-1.0) Aspartate Amino Transferase (AST) 13 U/L (0-35) Alanine Aminotransferase (ALT) 17 U/L (12-78) Alkaline Phosphatase 130 U/L (50-136) Total Creatine Kinase 17 U/L (26-192) L Creatine Kinase MB < 0.5 ng/mL (0.5-3.6) L Troponin I < 0.02 ng/mL (0.00-0.05) Pro-B-Type Natriuretic Peptide 1893 pg/mL (0-125) H Total Protein 7.2 g/dL (6.4-8.2) Albumin 2.9 g/dL (3.4-5.0) L Globulin 4.3 Helicobacter pylori Screen NEGATIVE (NEGATIVE) Departure Time of Disposition: 15:00 Disposition: 01 HOME, SELF-CARE Impression: Primary Impression: Pneumonia Additional Impression: Pleurisy Condition: Improved Referrals: LIZ WALLS DO (PCP) PRIMARY CARE PROVIDER Duration or Time Spent with Pa: 20MIN DAVID CRAIN MD Aug 05, 2019 11:40
[2019-08-05] MEDS ORDERED: ZOFRAN ODT ONE (11:41)
[2019-08-05] MEDS ORDERED: TORADOL ONE (11:42)
[2019-08-05] MEDS ORDERED: MORPHINE SULFATE ONE (11:42)
[2019-08-05 11:44] LABS: BASOPHIL % 0.3 % (0.0-0.2); EOSINOPHIL # 0.2 10^3/uL (0.0-0.2); EOSINOPHIL % 3.1 % (0.0-5.0); HEMOGLOBIN 8.9 g/dL (12.0-15.0); LYMPHOCYTES # 1.3 10^3/uL (1.0-4.8); LYMPHOCYTES % 19.2 % (24.0-44.0); MEAN CELL HGB 28.5 pg (26-34); MEAN CELL HGB CONCENTRATION 30.4 g/dL (33-37); MEAN CORP VOLUME 93.9 fL (78-100); MEAN PLATELET VOLUME 8.5 fL (7.8-11.0); MONOCYTES # 0.4 10^3/uL (0.3-0.8); MONOCYTES % 6.4 % (5.0-12.0); NEUTROPHIL # 4.8 10^3/uL (1.8-7.7); NEUTROPHILS % 70.7 % (41.0-85.0); WHITE BLOOD CELL 6.8 10^3/uL (4.5-11.0)
--- NOTE | 2019-08-05 12:04 | NUR ---
CRITICAL LAB D-DIMER 1.37, DOCTOR BREANN NOTIFIED.
[2019-08-05 12:10] LABS: CARBON DIOXIDE 27.8 mmol/L (20.0-32); GLUCOSE 128 mg/dL (70-110)
[2019-08-05] MEDS ORDERED: PREDNISONE PO STA (12:10)
[2019-08-05 12:11] LABS: ALANINE AMINOTRANSFERASE(ML) 17 U/L (12-78); ALKALINE PHOSPHATASE 130 U/L (50-136); ASPARTATE AMINO TRANSFERASE 13 U/L (0-35); CALCIUM 9.2 mg/dL (8.4-10.5)
[2019-08-05] MEDS ORDERED: PREDNISONE ONE (12:18)
--- NOTE | 2019-08-05 12:47 | NUR ---
CAT SCAN PATIENT TO CAT SCAN WITH
--- NOTE | 2019-08-05 12:53 | DIREP ---
PROCEDURE:XRAY RIBS W/PA CHEST 3VWS-LT COMPARISON:[facility], CR, XRAY CHEST SINGLE VW, 08/05/2019, 11:46 AM. [facility], CR, XRAY CHEST SINGLE VW, 07/13/2019, 02:30 PM. INDICATIONS:CHEST WALL PAIN L PARASPINAL AREA TECHNIQUE:PA chest and 2 views of the left ribs FINDINGS: Left RIBS:No fracture. LUNGS/PLEURA: No significant pulmonary parenchymal abnormalities. CARDIAC: Normal size cardiac silhouette and normal vascularity. MEDIASTINUM: Normal. BONES: Normal. OTHER: No additional findings. CONCLUSION:No displaced left rib fractures. No pneumothorax. Dictated by: Song Liriano MD on 08/05/2019 at 12:50 PM
--- NOTE | 2019-08-05 12:55 | DIREP ---
PROCEDURE:CHEST 1 VIEW COMPARISON:[facility], CR, XRAY CHEST SINGLE VW, 07/13/2019, 02:30 PM. [facility], CR, XRAY CHEST 2 VWS, 05/26/2018, 04:49 PM. INDICATIONS:CP FINDINGS: LUNGS/PLEURA:Subtle increased markings lower right without air bronchograms. VASCULATURE:Normal. Unremarkable pulmonary vasculature. CARDIAC:Heart size unchanged MEDIASTINUM:Normal. No visible mass or adenopathy. BONES:Normal. No fracture or visible bony lesion. OTHER:Negative. CONCLUSION:Subtle increased markings lower right could represent a subtle infiltrate. Dictated by: Song Liriano MD on 08/05/2019 at 12:52 PM
--- NOTE | 2019-08-05 13:08 | NUR ---
CAT SCAN PATIENT BACK FROM CAT SCAN
[2019-08-05 13:27] VITALS: BP 169/99
--- NOTE | 2019-08-05 13:38 | DIREP ---
PROCEDURE:CTA CHEST COMPARISON:None. INDICATIONS:PLEURITIC CHEST PAIN L TECHNIQUE:Post contrast axial images through the chest with multiplanar MIP/3D reconstructions. FINDINGS: PULMONARY ARTERIES:No sizable pulmonary embolus. LUNGS:Small right and trace left pleural effusions. There is likely associated compressive atelectasis along the dependent aspect of the hemithoraces. Subtle patchy ground-glass opacities within the upper hemithoraces may reflect subtle multifocal inflammatory pneumonitis. This is asymmetrically more prominent on the right. No pneumothorax. CARDIAC:The heart is not enlarged. There is no pericardial effusion. Scattered coronary artery calcifications. THORACIC AORTA:No aneurysm or appreciable dissection. Mild scattered atherosclerotic calcifications. MEDIASTINUM:The imaged thyroid gland appears grossly unremarkable. No suspicious mediastinal lymphadenopathy. BONES:Degenerative changes of the spine. No acute abnormality. OTHER:Previous cholecystectomy. CONCLUSION: 1. No sizable pulmonary embolus. 2. Small right and trace left pleural effusions with suspected subtle multifocal inflammatory pneumonitis within the upper hemithoraces, right greater than left. 3. Additional findings as discussed above. Dictated by: Neo Aviles M.D. On 08/05/2019 at 01:29 PM
[2019-08-05 14:17] VITALS: BP 144/66
--- NOTE | 2019-08-05 14:17 | NUR ---
IV 20G IV D/C'D TIP INTACT TO LEFT WRIST, NO SIGN OF INFILTRATION NOTED.
--- NOTE | 2019-08-06 00:56 | PCM.EKG ---
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
== END 2019-08-05 14:20 | disposition home or self-care (01) ==
LOC: ER 11:25
DX: J18.9 Pneumonia, unspecified organism (principal); R09.1 Pleurisy; E07.9 Disorder of thyroid, unspecified; I10 Essential (primary) hypertension; Z79.899 Other long term (current) drug therapy; Z88.5 Allergy status to narcotic agent; Z90.49 Acquired absence of other specified parts of digestive tract; Z90.710 Acquired absence of both cervix and uterus
CPT/HCPCS: 36415; 71045; 71101; 71275; 80053; 82550; 82553; 83880; 84484; 85025; 85379; 85610; 85730; 86677; 93005; 96372; 99285; J1885; J2270; J7512; Q0162; Q9967

== ENCOUNTER → 2019-08-30 | Outpatient (CLI) | payer MEDICARE, OTHER ==
--- NOTE | 2019-08-30 14:41 | DIREP ---
PROCEDURE:CHEST 2 VIEWS COMPARISON:[facility], CT, CTA CHEST, 08/05/2019, 12:27 PM. INDICATIONS:DYSPNEA FINDINGS: LUNGS/PLEURA:No significant pulmonary parenchymal abnormalities. No effusions. VASCULATURE:Normal. Unremarkable pulmonary vasculature. CARDIAC:Normal. No cardiac silhouette abnormality or cardiomegaly. MEDIASTINUM:Normal. No visible mass or adenopathy. BONES:The T6 vertebral body is remarkable for compression deformity, increased from the comparison exam OTHER:IVC filter CONCLUSION: No active cardiopulmonary disease process. Increasing compression fracture of T6. Consider MRI to assess for acute marrow edema Dictated by: Chaparrita Meek M.D. on 08/30/2019 at 02:37 PM
== END | disposition home or self-care (01) ==
LOC: RAD 13:32
PROVIDERS: ATTEND Nurse Practitioner
DX: M48.54XA Collapsed vertebra, not elsewhere classified, thoracic region, initial encounter for fracture (principal); R06.00 Dyspnea, unspecified
CPT/HCPCS: 71046

== ENCOUNTER → 2020-07-18 | Outpatient (CLI) | payer MEDICARE, OTHER ==
[~2020-07-18] MED LIST changes: +METF-713 PO; -METF500T12 PO
--- NOTE | 2020-07-18 14:23 | DIREP ---
PROCEDURE:Digital Screening Mammogram TECHNIQUE:MLO, CC, XCCL, and cleavage digital images of each breast are provided. Computer Assisted Detection (CAD) was utilized. COMPARISON:[facility], MAMMO BILATERAL SCREENING, 04/26/2018, 03:02 PM. [facility], MAMMO BILATERAL SCREENING, 05/12/2017, 10:44 AM. [facility], MAMMO BILATERAL SCREENING WITH CAD, 05/05/2016, 01:53 PM. [facility], MAMMO BILATERAL SCREENING, 04/10/2015, 11:06 AM. [facility], DIGITAL MAMMO SCREENING, 04/10/2014, 05:23 PM. [facility], DIGITAL MAMMO SCREENING, 04/10/2013, 01:20 PM. [facility], MAMMOGRAM SCREENING, 07/22/2011, 12:52 PM. [facility], MAMMOGRAPHY PRIORS, 09/08/2010, 06:20 PM. [facility], MAMMO BILATERAL SCREENING, 06/06/2019, 01:48 PM. INDICATIONS:SCREENING BREAST COMPOSITION:There are scattered areas of fibroglandular density. FINDINGS:There are no grouped microcalcifications, masses, or architectural distortions to suggest malignancy. There is no significant change as compared with the previous examination(s). IMPRESSION:No mammographic evidence of malignancy. RECOMMENDATIONS:Routine Screening Mammography per [employer] guidelines. OVERALL FINAL ASSESSMENT:BI-RADS 1 - Negative Mammogram Note: This facility participates in a mammography screening patient reminder system. Dictated by: Cosmo Whyte M.D. on 07/18/2020 at 02:18 PM
== END | disposition home or self-care (01) ==
LOC: RAD 12:22
PROVIDERS: ATTEND Family Medicine
DX: Z12.31 Encounter for screening mammogram for malignant neoplasm of breast (principal)
CPT/HCPCS: 77067

== ENCOUNTER 2021-04-29 09:10 | Day surgery (SDC) | payer MEDICARE, OTHER ==
[2021-04-25 12:51] VITALS: BP 110/77
--- NOTE | 2021-04-25 13:34 | PCM.EKG ---
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
[2021-04-25 13:37] LABS: BASOPHIL % 0.2 % (0.0-0.2); EOSINOPHIL # 0.2 10^3/uL (0.0-0.2); EOSINOPHIL % 1.9 % (0.0-5.0); LYMPHOCYTES # 2.86 10^3/uL1 (1.0-4.8); LYMPHOCYTES % 32.6 % (24.0-44.0); MEAN CORP HGB 31.1 pg (26-34); MONOCYTES # 0.5 10^3/uL (0.3-0.8); MONOCYTES % 5.4 % (5.0-12.0); NEUTROPHIL # 5.2 10^3/uL (1.8-7.7); NEUTROPHILS % 59.3 % (41.0-85.0); PLATELET COUNT 329 10^3/uL (150-400); RED CELL DISTRIBUTION WIDTH 13.9 % (11.5-14.5)
[2021-04-25 13:52] LABS: CALCIUM 8.9 mg/dL (8.4-10.5)
[~2021-04-29] VITALS: Ht 157.5 cm; Wt 111.1 kg
[2021-04-29] VITALS (19 sets, daily range): BP systolic 98–126; BP diastolic 39–97
[~2021-04-29 09:10] MED LIST changes: +CYCL5TAB PO; +FURO40TA4 PO; +LACTATED RINGERS 1,000 ML ONE; +METO25TA4 PO; -OMEP40CA41 PO; +OMEP40CA8 PO; +SODIUM CHLORIDE IRR BOTTLE IR ONE; +VITA1TAB31 PO; +[UNRECOGNIZED DRUG - CODE] PO
[2021-04-29] MEDS: LACTATED RINGERS 1,000 ML IV SCH ×2 (09:44→11:25)
[2021-04-29] MEDS ORDERED: XYLOCAINE 1%-EPI 1:100,000 ONE (11:16)
[2021-04-29] MEDS ORDERED: LIDOCAINE 1% VIAL ONE (11:17)
[2021-04-29] MEDS ORDERED: LACTATED RINGERS 1,000 ML ONE (11:23)
[2021-04-29] MEDS ORDERED: DIPRIVAN IV ONE (11:25)
[2021-04-29] MEDS ORDERED: SUBLIMAZE ONE (11:25)
--- NOTE | 2021-04-29 12:43 | OPH ---
DATE OF SURGERY: 04/29/2021 DICTATOR NAME: Nino Zayas MD PREOPERATIVE DIAGNOSIS: Painful hardware of the left ankle. POSTOPERATIVE DIAGNOSIS: Painful hardware of the left ankle. OPERATIVE PROCEDURE: Deep hardware removal, left ankle. SURGEON: Nino Zayas MD. ANESTHESIA: LMA. TOURNIQUET TIME: 25 minutes at 300 mmHg. INDICATIONS: The patient had ORIF of a bimalleolar fracture of the left ankle in 2018. Her fracture has healed. She is complaining of pain medially and laterally about the ankle. The x-ray showed that some of her screws had backed out and therefore she has been taken to the operating room for hardware removal. DESCRIPTION OF PROCEDURE: This patient was placed on the operating table in the supine position. LMA anesthetic was induced without difficulty. The patient had a well-padded tourniquet placed around the left lower extremity and the tourniquet was applied after the leg was padded. The patient then had the left lower extremity sterilely prepped and draped. The leg was exsanguinated with an Esmarch and the tourniquet was inflated to 300 mmHg. A lateral incision was made about the lateral malleolus. Incision was taken through the skin and the subcutaneous tissue. The plate was identified and exposed. The screws were removed with a small screwdriver and the plate was removed with an elevator. She had another anterior to posterior screw outside the plate. It was more difficult to remove, so we elected to leave it into position. The wounds were irrigated. The skin edges were injected with Marcaine with epinephrine. The subcutaneous was closed with 2-0 barbed Monocryl in a running manner. The skin was closed with byron. We then turned our attention to the medial aspect of the ankle. The incision was taken through the previous incision about the tip of the medial malleolus. Incision was taken through the skin and the subcutaneous tissues down to the tip of the medial malleolus. The screw tips were identified and cleared of any soft tissue and then the screws were removed without incident. The wounds were irrigated and closed with a 2-0 Monocryl interrupted for the subcutaneous and byron for the skin. Again, the skin edges were injected with Marcaine with epinephrine for postoperative pain relief. A compressive dressing was applied consisting of Adaptic, 4 x 4's, ABD pad, cast padding and Walter wrap. The patient had the tourniquet release and was sent to recovery in stable condition. Nino Zayas MD DR: JEAN CARLOS/LEWIS TID: [id number] RECEIPT: [id number]
[2021-04-29] MEDS ORDERED: DILAUDID IV PRN (12:53)
[2021-04-29] MEDS ORDERED: DILAUDID ONE (12:55)
== END 2021-04-29 15:21 | disposition home or self-care (01) ==
LOC: SDC 09:10
PROVIDERS: ATTEND Orthopaedic Surgery
DX: T84.84XA Pain due to internal orthopedic prosthetic devices, implants and grafts, initial encounter (principal); I10 Essential (primary) hypertension; E03.9 Hypothyroidism, unspecified; Z87.891 Personal history of nicotine dependence; Z98.890 Other specified postprocedural states; Z79.899 Other long term (current) drug therapy; Z79.82 Long term (current) use of aspirin; Z79.890 Hormone replacement therapy; Z90.49 Acquired absence of other specified parts of digestive tract; Z90.710 Acquired absence of both cervix and uterus; Z98.84 Bariatric surgery status; Y83.8 Other surgical procedures as the cause of abnormal reaction of the patient, or of later complication, without mention of misadventure at the time of the procedure
CPT/HCPCS: 20680; 36415; 80053; 85025; 93005; A4217; J1170; J2001; J3010; J3490; J7120 ×2

== ENCOUNTER → 2021-05-19 | Outpatient (CLI) | payer MEDICARE, OTHER ==
[~2021-05-19] MED LIST changes: -LACTATED RINGERS 1,000 ML ONE; -SODIUM CHLORIDE IRR BOTTLE IR ONE
== END | disposition home or self-care (01) ==
LOC: NPLAB 14:49
PROVIDERS: ATTEND Nurse Practitioner Family
DX: E11.42 Type 2 diabetes mellitus with diabetic polyneuropathy (principal); I10 Essential (primary) hypertension; E03.9 Hypothyroidism, unspecified
CPT/HCPCS: 36415; 80061; 83036; 84439; 84443

== ENCOUNTER → 2021-08-20 | Outpatient (CLI) | payer MEDICARE, OTHER ==
[~2021-08-20] MED LIST changes: -CITA40TA5 PO; +CITA40TA6 PO
--- NOTE | 2021-08-20 17:24 | DIREP ---
PROCEDURE:Digital Screening Mammogram TECHNIQUE:MLO, CC, and XCCL digital images of each breast are provided. Computer Assisted Detection (CAD) was utilized. COMPARISON:[facility], , MAMMO BILATERAL SCREENING, 06/06/2019, 01:48 PM. [facility], , MAMMO BILATERAL SCREENING, 07/18/2020, 01:28 PM. INDICATIONS:SCREENING BREAST COMPOSITION:Scattered areas fibroglandular density. FINDINGS:There are no grouped microcalcifications, masses, or architectural distortions to suggest malignancy. There is no significant change as compared with the previous examination(s). IMPRESSION:No mammographic evidence of malignancy. RECOMMENDATIONS:Routine Screening Mammography per [employer] guidelines. OVERALL FINAL ASSESSMENT:BI-RADS 1 - Negative Mammogram Note: This facility participates in a mammography screening patient reminder system. Dictated by: Patrick Helton M.D. on 08/20/2021 at 05:20 PM
== END | disposition home or self-care (01) ==
LOC: RAD 14:32
PROVIDERS: ATTEND Nurse Practitioner Family
DX: Z12.31 Encounter for screening mammogram for malignant neoplasm of breast (principal)
CPT/HCPCS: 77067

== ENCOUNTER → 2021-10-03 | Outpatient (CLI) | payer MEDICARE, OTHER | END | disposition home or self-care (01) | LOC: RT 13:35 | PROVIDERS: ATTEND Nurse Practitioner Family | DX: R06.02 Shortness of breath (principal) | CPT/HCPCS: 94060 ==

== ENCOUNTER → 2022-02-19 | Outpatient (CLI) | payer MEDICARE, OTHER | END | disposition home or self-care (01) | LOC: NPLAB 11:48 | PROVIDERS: ATTEND Nurse Practitioner Family | DX: R30.0 Dysuria (principal) | CPT/HCPCS: 87077; 87086; 87186 ==